=== PATIENT | female | born 1965 | race African-American/Black ===

== ENCOUNTER 2018-03-22 20:09 | Emergency (ER) | payer MEDICAID, OTHER ==
[~2018-03-22] VITALS: Ht 160 cm; Wt 73.5 kg
[2018-03-22 21:06] VITALS: BP 110/62
== END 2018-03-22 22:10 | disposition left against medical advice (07) ==
LOC: ER 20:09
DX: Z53.21 Procedure and treatment not carried out due to patient leaving prior to being seen by health care provider (principal)